=== PATIENT | male | born 1965 | race Caucasian/White ===

== ENCOUNTER 2017-01-18 10:13 | Emergency (ER) | payer BC, OTHER ==
[2017-01-18 10:39] LABS: Hematocrit 49.2 % (42.0-52.0); Hemoglobin 16.1 gm/dL (13.5-18.0); Mean Cell Volume 84.5 fl (78-100); Mean Corpuscular Hemoglobin 27.7 pg (27-31); Mean Corpuscular Hgb Conc 32.7 g/dl (32-36); Mean Platelet Volume 10.2 fl (6.0-9.5); Neutrophil # 5.6 K/mm3 (1.3-6.0); Neutrophil % 64.8 % (42-75.0); Platelet Count 254 K/mm3 (150-450); Red Blood Count 5.82 M/mm3 (4.7-6.0); Red Cell Distribution Width 15.9 % (11.5-14.0); White Blood Count 8.6 K/mm3 (4.0-10.5)
[2017-01-18 11:00] LABS: Troponin I 0.053 ng/ml (0.00-0.10)
[2017-01-18 11:01] LABS: Albumin * 3.2 gm/dl (3.4-5.0); Anion Gap 13.5 mmol/L (6.8-13.8); BUN/Creatinine Ratio 10.3 (9.0-21.6); Bilirubin, Total 0.7 mg/dL (0.0-1.1); Ca. Corrected For Albumin 9.8 mg/dL (8.4-10.2); Calcium * 9.5 mg/dL (7.9-10.9); Carbon Dioxide 27.8 mmol/L (24-32.6); Potassium 4.3 mmol/L (3.4-4.6)
[2017-01-18] MEDS ORDERED: FUROSEMIDE 10 MG/ML VIAL IV ONE (11:13)
[2017-01-18] MEDS ORDERED: FUROSEMIDE 10 MG/ML VIAL ONE (11:17)
--- NOTE | 2017-01-18 11:22 | ERNOTE ---
Dyspnea - Date Date of Service: 01/18/17 - General Presenting Symptoms: shortness of breath Time Seen by Provider: 01/18/17 10:24 Source: patient, RN notes reviewed, old records Exam Limitations: no limitations - Immun/Allergies/Home Medications Immunizations: IMMUNIZATION HX Immunizations Up to Date Yes History of Influenza Vaccine No Hx Pneumococcal Vaccination No Allergies/Adverse Reactions: Allergies No Known Allergies Allergy (Verified 01/18/17 10:42) Home Medications: HOME MEDICATIONS Furosemide [Lasix] 40 mg PO DAILY #30 tablet 01/18/17 [Last Taken Unknown] Lisinopril 20 mg PO DAILY #30 tablet 01/18/17 [Last Taken Unknown] Potassium Chloride [K-Dur] 20 meq PO DAILY #30 tab 01/18/17 [Last Taken Unknown] - History of Present Illness Narrative: 51 y/o male ambulatory to the ED for shortness of breath and fluid retention that he noticed over the past 5 days. He reports dyspnea that does not vary with exertion, but does become worse when he lays down. He also reports feeling bloated but denies any nausea or abdominal pain. He denies any cough or chest pain. He was being treated for hypertension but has not seen his PCP for almost 2 years and stopped his medication. Severity: moderate Treatment DRIVER MEDIC: none Initiating event: Reports: unknown Frequency of episodes: Reports: no prior episodes Modifying Factors - (Improves): Reports: nothing Modifying Factors (Worsens): Reports: lying down Associated Symptoms-Dyspnea: Reports: ankle/leg swelling. Denies: fever/chills , sweating, chest pain/discomfort, cough, wheezing, leg/calf pain, dizziness, lightheadedness, weakness Prior Treatment: Denies: recently seen Review of Systems - Review of Systems Constitutional: Present: fatigue. Absent: recent illness, fever, chills EYE: Present: no symptoms reported ENT: Absent: nose congestion, sore throat Respiratory: Present: shortness of breath, orthopnea. Absent: cough, wheezing, stridor Cardiology: Present: edema. Absent: chest pain, palpitations Gastrointestinal/Abdominal: Absent: nausea, vomiting, abdominal pain Genitourinary: Present: no symptoms reported Musculoskeletal: Absent: muscle pain, neck pain Skin: Absent: rash, lesions Neurological: Absent: headache, dizziness/light-headedness Endocrine: Present: no symptoms reported Hematologic/Lymphatic: Absent: easy bruising, easy bleeding Psych: Present: no symptoms reported - Patient's Past Medical History Patient History - Medical: Obesity Patient History - Cardiac/Respiratory: Hypertension Patient History - Cancer: No Hx of Cancer Patient History - Surgical Procedures: T & A, Hernia Repair, Orthopedic Patient History - Other: None - Family History Father Family History - Medical: Diabetes Type 2 Family History - Cardiac/Respiratory: CHF, Hypertension, Myocardial Infarction - Social History Living Situations: home Abuse History: No History of abuse Psych History: No pertinent hx Smoking Status: Current every day smoker Cigarettes Packs Per Day: 0.5 Have you smoked in the past 12 months: Yes Alcohol Use: none Drug Use: none - Immunizations Immunizations Up to Date: Yes Hx Pneumococcal Vaccination: No History of Influenza Vaccine: No Physical Exam - Physical Exam General Appearance: Present: alert, mild distress, obese Neck: Present: normal inspection, nontender, supple, full range of motion Respiratory: Present: no respiratory distress, accessory muscle use, decreased breath sounds, crackles - Mild, right base Cardiovascular/Chest: Present: no murmur, normal peripheral pulses, tachycardia Gastrointestinal/Abdominal: Present: nontender, soft, distended - obese Extremity Exam: Present: non-tender, normal range of motion, pedal edema - Mild , bilateral Neurological Exam: Present: alert, oriented, normal mood/affect, no motor/ sensory deficits Skin Exam: Present: normal color, warm/dry ED Progress - Vital Signs Patient's Vital Signs:: I have reviewed the patient's vital signs. Vital Signs: Vital Signs 01/18/17 01/18/17 10:17 11:13 Temperature 36.6 C Pulse Rate 115 H 140 H Respiratory 18 17 Rate Blood Pressure 182/118 172/98 O2 Sat by Pulse 97 97 Oximetry - EKG EKG: other - Sinus tachycardia - X-Ray X-Ray #1 X-Ray: chest Interpretation: Reviewed by me X-ray Comments: Technique: PA and lateral views of the chest are compared to prior dated September 29, 2015. Findings: Diffuse hyperinflation of the lungs bilaterally with flattening of the hemidiaphragm. Small right pleural effusion. Worsening cardiomegaly from the prior examination. Mild pulmonary gastric congestion. Diffuse interstitial edema and thickening. Positive curly B-lines are seen. The osseous structures demonstrate degenerative changes of the spine and shoulders. IMPRESSION: FINDINGS CONSISTENT WITH ACUTE CHF EXACERBATION - CT/Ultrasound CT/Ultrasound Narrative: Technique: Multiple thin-section contrast-enhanced axial CT images of the chest were obtained after rapid infusion of intravenous contrast material, according to pulmonary angiography protocol. Coronal maximal intensity projection (MIP) images were also submitted for interpretation. Comparison: No prior chest CTs for comparison. Findings: There is adequate opacification of the pulmonary arterial system. No intraluminal filling defects to suggest pulmonary embolism. The aorta shows diffuse atherosclerosis but is normal caliber and course without aneurysmal dilation or evidence for dissection. There is a moderate right-sided pleural effusion with associated compressive atelectasis the right lower lobe. No left-sided pleural effusion. No evidence for pneumothorax. No consolidation beyond the compressive atelectasis. Scattered calcified granulomas. Calcified right hilar lymph nodes. No pathologic mediastinal or hilar lymphadenopathy. The osseous structures demonstrate degenerative changes spine and shoulders. IMPRESSION: 1. NO EVIDENCE FOR PULMONARY EMBOLISM. 2. MODERATE RIGHT-SIDED PLEURAL EFFUSION WITH ASSOCIATED COMPRESSIVE ATELECTASIS THE RIGHT LOWER LOBE. Electronically signed by Chi Garrett D.O.. - Progress/Reassessment Chief Complaint: Dyspnea Progress:: Improved Plan - Plan Plan: Lasix 80 mg given IVP, patient verbalizes being able to breath easier. F/U appointment scheduled with Dr. Jernigan next week. Will restart lisinopril and start po Lasix. Departure Clinical Impression: Uncontrolled hypertension Acute congestive heart failure Qualifiers: Congestive heart failure type: unspecified congestive heart failure type Qualified Code(s): I50.9 - Heart failure, unspecified - Departure Disposition: Home Follow Up Needed Condition: Stable Instructions: Heart Failure, [id number], Form - Excuse from Work, School, or Physical Activity Referrals: Herberth Jernigan DO [Staff Physician] - 01/23/17 1:15 pm Prescriptions: Furosemide [Lasix] 40 mg PO DAILY #30 tablet Lisinopril 20 mg PO DAILY #30 tablet Potassium Chloride [K-Dur] 20 meq PO DAILY #30 tab
[2017-01-18] MEDS ORDERED: LISINOPRIL 10 MG TABLET ONE (13:10)
[2017-01-18] MEDS ORDERED: LISINOPRIL 10 MG TABLET PO ONE (13:10)
[2017-01-18 13:15] VITALS: BP 174/115
== END 2017-01-18 13:28 | disposition home or self-care (01) ==
LOC: ER 10:13
DX: I10 Essential (primary) hypertension (principal); I50.9 Heart failure, unspecified; F17.200 Nicotine dependence, unspecified, uncomplicated